=== PATIENT | male | born 1965 | race Caucasian/White ===

== ENCOUNTER 2020-10-23 01:11 | Day surgery (SDC) | payer OTHER, SELFPAY ==
--- NOTE | 2020-10-20 08:32 | P.HP_ITS ---
History of Present Illness History of Present Illness Consent: Risks, benefits, and alternatives have been discussed and questions answered. Patient agrees to proceed with procedure. Chief complaint: Benign Prostatic Hyperplasia Narrative: Zafar Hannah is a 55 year old male With long-standing prostatism dating back approximately 11 years. He recently presented with a desire to get out medications for BPH. At the discussion of therapeutic options and evaluation i ncluding PSA and cystoscopy he has elected for a Urolift. He is aware the risk of this procedure, including but not limited to, adverse cardiopulmonary events, postoperative hematuria, persistent voiding symptoms. We also discuss alternative therapeutic options including TURP, medical management laser prostatectomy. Review of Systems Cardiovascular: Cardiovascular: Denies chest pain, Denies lightheadedness, Denies palpitations and Denies dyspnea Respiratory: Respiratory: Denies dyspnea Gastrointestinal: Gastrointestinal: Denies diarrhea, Denies nausea and Denies vomiting Genitourinary: Genitourinary: Denies hematuria and Denies dysuria Endocrine: Endocrine: Denies palpitations [facility] Family History Family History Mother Patient's mother is in good health Father Patient's father is in good health Sibling Patient's sister is in good health Patient's brother is in good health Social History Social History Smoking status: Never smoker Second hand tobacco smoke exposure: Yes Alcohol intake: current Drinks per week: 4 Substance use: never Meds Home Medications and Allergies Home Medications Medication Instructions Recorded Confirmed Type naproxen 500 mg tablet 500 mg PO BID 11/07/19 06/18/20 History tadalafil 2.5 mg tablet 2.5 mg PO DAILY 01/14/20 06/18/20 History Allergies Allergy/AdvReac Type Severity Reaction Status Date / Time No Known Allergies Allergy Verified 06/17/20 13:31 Assessment and Plan Assessment and plan (1) BPH loc w urin obs/LUTS: Code(s): N40.1 - Benign prostatic hyperplasia with lower urinary tract symptoms Status: Acute Assessment and Plan: * UroLift
[2020-10-21 09:22] VITALS: BMI 23.1
--- NOTE | 2020-10-23 06:00 | WPDHPUPDATE1 ---
History and Physical Update Update Date/Time: 10/23/20 06:00 History and Physical has been reviewed, including an updated exam of the patient. There are NO changes in the patient's condition. Risks, benefits, and alternatives have been discussed and questions answered. Patient agrees to proceed with procedure.
[2020-10-23 06:29] VITALS: BP 115/78; PULSE 59; RESP 16; TEMP 36.3; O2SAT 97; BMI 24.3
--- NOTE | 2020-10-23 06:41 | P.PNAN_ITS ---
Anes - Initial Pre Proc Eval Procedure: Operation Date: 10/23/20 07:30 Proposed Procedures p Urolift - Noe Del Real MD Date/Time: 10/23/20 06:41 Surgeon: Noe Del Real MD Pre Op Diagnosis: Benign Prostatic Hyperplasia Patient Data Age: 55 Gender: M Height: 1.79 m Weight: 78.2 kg Last Vital Signs Temp 36.3 C L 10/23/20 06:29 Pulse 59 L 10/23/20 06:29 Resp 16 10/23/20 06:29 BP 115/78 10/23/20 06:29 Pulse Ox 97 10/23/20 06:29 Allergies Allergy/AdvReac Type Severity Reaction Status Date / Time No Known Allergies Allergy Verified 10/23/20 06:20 Home Medications Medication Instructions Recorded Confirmed Type tadalafil 2.5 mg tablet 2.5 mg PO DAILY 01/14/20 10/21/20 History ibuprofen [Advil] 400 mg PO DAILY PRN 10/21/20 10/23/20 History Patient hx anesthesia problems: none Family hx anesthesia problems: none PMFSH Surgical History Surgical History (Updated 10/23/20 @ 06:44 by Marlon Adams MD) H/O sinus surgery S/P ACL reconstruction Family History Family History Mother Patient's mother is in good health Father Patient's father is in good health Sibling Patient's sister is in good health Patient's brother is in good health Social History Social History Smoking status: Never smoker Second hand tobacco smoke exposure: Yes Alcohol intake: current Drinks per week: 4 Substance use: never Spiritual care concerns: No Anes - Eval Final PreProcedure Day of Procedure 10/23/20 06:41 Patient weight: normal Heart: regular rate and rhythm Lungs: clear to auscultation Airway: Mallampati scale class 1 Neurological: alert and oriented Last oral intake: >/= 8 hours ASA classification: I Emergent: no Anesthetic plan: proceed Anesthesia type and monitoring: general GIVS and standard monitoring Informed Consent: The patient's anesthetic plan and its attendant risks and be nefits were discussed with the patient/family/POA. Questions were solicited and answers provided to the satisfaction of the patient/family/POA.
[2020-10-23] MEDS: LACTATED RINGERS 1,000 ML 30 ML IV CONT (06:48)
[2020-10-23] MEDS: ceFAZolin 2 GM/D5W 50 ML 2 GM/50 ML BAG IVPB (07:28)
[2020-10-23] MEDS: LIDOCAINE HCL 2% GEL UROJET 10 ML PKG MUCOUS MEM (07:41)
--- NOTE | 2020-10-23 07:43 | W.PM.PROC2 ---
Procedure Note - Detailed Date of Procedure 10/23/20 Pre-op Diagnosis Benign Prostatic Hyperplasia Post-op Diagnosis same Procedure Performed UroLift Surgeon Noe Del Real MD Abrasive Band Winder None Anesthesia MAC Indications Bladder outlet obstruction due to BPH Description of Procedure The patient was prepped and draped in a routine fashion after the uneventful induction of a general LMA anesthetic. A 20F cystoscope was inserted into the bladder. The cystoscopy bridge was replaced with a UroLift delivery device. The first treatment site was the patient's right side approximately 1.5cm distal to the bladder neck. The distal tip of the delivery device was then angled laterally approximately 20 degrees at this position to compress the lateral lobe. The trigger was pulled, thereby deploying a needle containing the implant through the prostate. The needle was then retracted, allowing one end of the implant to be delivered to the capsular surface of the prostate. The implant was then tensioned to assure capsular seating and removal of slack monofilament. The device was then angled back toward midline and slowly advanced proximally (typically 3 to 4 mm) until cystoscopic verification of the monofilament being centered in the delivery bay. The urethral end piece was then affixed to the monofilament thereby tailoring the size of the implant. Excess filament was then severed. The delivery device was then re-advanced into the bladder. The delivery device was then replaced with cystoscope and bridge and the implant location and opening effect was confirmed cystoscopically. The same procedure was then repeated on the left side, and two additional implants were delivered just proximal to the verumontanum, again one on right and one on left side of the prostate, following the same technique. Therefore, a total of 4 implants were delivered. A final cystoscopy was conducted first to inspect the location and state of each implant and second, to confirm the presence of a continuous anterior channel was present through the prostatic urethra with irrigation flow turned off. The bladder was then filled with 150 cc irrigation fluid to assist the patient in void trial after the procedure, and all instruments were removed. At this point the cystoscope was removed and the patient was taken to the PACU in good condition. Implants UroLift x4 Estimated Blood Loss 0 Drains No Packing No Pathology none sent Complications No immediate complications Condition stable
[2020-10-23 07:49] VITALS: BP 120/66; PULSE 60; RESP 14; O2SAT 98
[2020-10-23 08:10] VITALS: BP 119/71; PULSE 87; RESP 14; O2SAT 97
[2020-10-23 08:33] VITALS: BP 133/76; PULSE 88; RESP 14
[2020-10-23 09:00] VITALS: BP 123/66; PULSE 55; RESP 16
== END 2020-10-23 09:06 | disposition home or self-care (01) ==
PROVIDERS: PCP Internal Medicine; Visit Provider Urology
PROC: 0T7D8DZ Dilation of Urethra with Intraluminal Device, Via Natural or Artificial Opening Endoscopic (ICD-10-PCS; CPT 52441; principal; 2020-10-23 07:30)
DX: N40.1 Benign prostatic hyperplasia with lower urinary tract symptoms (principal); N13.8 Other obstructive and reflux uropathy
CPT/HCPCS: 52441; 52442 ×3; A9270; J0690; J2250; J2704; J3010; J7120; L8699

== ENCOUNTER → 2020-11-20 14:25 | Outpatient (CLI) | payer OTHER, SELFPAY ==
--- NOTE | ~2020-11-20 | XR_ITS ---
XR knee LT 3V DATE: 11/20/2020 14:49 INDICATION: Left knee pain TECHNIQUE: [place], standing AP and lateral views COMPARISON: None FINDINGS: Threaded radiopaque devices are noted in the distal femur and proximal tibia for cruciate l igament repair. There is mild chondrocalcinosis. There is tricompartment mild to moderate osteoarthritis, most pronou nced at the medial compartment. No recent fracture or dislocation or joint effusion. No periosteal reaction or bone destruction. IMPRESSION: Successful surgical repair Chondrocalcinosis Osteoarthritis of moderate degree, greatest at the medial compartment Reviewed, dictated and finalized at location A.
--- NOTE | ~2020-11-20 | XR_ITS ---
XR knee RT 3V DATE: 11/20/2020 14:49 INDICATION: Right knee pain TECHNIQUE: [place], AP and lateral views COMPARISON: None FINDINGS: No fracture or dislocation or joint effusion, radiopaque intra-articular loose body or jose c drocalcinosis. No periosteal reaction or bone destruction. Minimal loss of height of the medial compartment joint space. IMPRESSION: Minimal loss of height of medial compartment joint space Reviewed, dictated and finalized at location A.
== END ==
PROVIDERS: PCP Internal Medicine; Visit Provider Internal Medicine
DX: M25.561 Pain in right knee (principal); M17.12 Unilateral primary osteoarthritis, left knee
CPT/HCPCS: 73562

== ENCOUNTER → 2020-12-10 16:55 | Outpatient (CLI) | payer OTHER, SELFPAY ==
--- NOTE | ~2020-12-10 | MR_ITS ---
EXAMINATION: MR lumbar spine wo con DATE: 12/10/2020 17:43 INDICATION: Low back pain. TECHNIQUE: Magnetic resonance imaging (MRI) of the lumbar spine was performed without intravenous con trast. Sequences included sagittal T2-weighted FSE, sagittal T2-weighted FS FSE, sagittal T1-weighted FSE, and axial T2-weighted FSE. COMPARISON: None FINDINGS: Bone alignment is normal. Vertebral body heights and intervertebral disc heights are normal . The distal spinal cord signal intensity is normal. The conus medullaris is at L1. The following dis c levels are specifically discussed: L1-L2: The disc does not extend beyond the endplate margin. There is mild bilateral facet joint osteo arthritis. There is no neural foraminal stenosis. There is no central canal stenosis. L2-L3: The disc does not extend beyond the endplate margin. There is mild bilateral facet joint osteo arthritis. There is no neural foraminal stenosis. There is no central canal stenosis. L3-L4: The disc is mildly bulging. There is mild bilateral facet joint osteoarthritis. There is mild left neural foraminal stenosis. There is no central canal stenosis. L4-L5: The disc is bulging and has an annular fissure. There is severe bilateral facet joint osteoart hritis. There is mild bilateral neural foraminal stenosis. There is mild central canal stenosis. L5-S1: The disc does not extend beyond the endplate margin. There is severe bilateral facet joint ost eoarthritis. There is mild bilateral neural foraminal stenosis. There is no central canal stenosis. IMPRESSION: 1. Mild lumbar spondylosis. Reviewed, dictated and finalized at location A. IMPRESSION: 1. Mild lumbar spondylosis.
== END ==
PROVIDERS: PCP Internal Medicine; Visit Provider Internal Medicine
DX: M54.9 Dorsalgia, unspecified (principal); M47.816 Spondylosis without myelopathy or radiculopathy, lumbar region
CPT/HCPCS: 72148

== ENCOUNTER 2022-02-15 06:01 | Day surgery (SDC) | payer OTHER, SELFPAY ==
[2022-02-15 06:24] VITALS: BMI 25.2
[2022-02-15 06:30] VITALS: BMI 25.2
--- NOTE | 2022-02-15 07:13 | P.PNAN_ITS ---
Anes - Initial Pre Proc Eval Procedure: Operation Date: 02/15/22 07:30 Proposed Procedures p Esophagogastroduodenoscopy - Khari Mlies MD Date/Time: 02/15/22 07:13 Surgeon: Khari Miles MD Pre Op Diagnosis: Gerd Patient Data Age: 56 Gender: M Height: 1.78 m Weight: 79.6 kg Allergies Allergy/AdvReac Type Severity Reaction Status Date / Time No Known Allergies Allergy Verified 02/15/22 06:30 Home Medications Medication Instructions Recorded Confirmed Type meloxicam 15 mg tablet 15 mg PO DAILY #90 tabs 01/25/22 02/15/22 Rx omeprazole 40 mg capsule,delayed 40 mg PO DAILY #90 caps 02/03/22 02/15/22 Rx release alprazolam 0.5 mg tablet 0.5 mg PO PRN PRN anxiety 02/15/22 02/15/22 History tadalafil 2.5 mg tablet (Cialis) 2.5 mg PO DAILY PRN Sexual Activity 02/15/22 02/15/22 History Patient hx anesthesia problems: none Family hx anesthesia problems: none Results Review: All pre-operative results and documents have been reviewed as part of the pre-operative evaluation. [facility] Surgical History Surgical History H/O sinus surgery S/P ACL reconstruction Family History Family History Mother Patient's mother is in good health Father Patient's father is in good health Sibling Patient's sister is in good health Patient's brother is in good health Social History Social History Smoking status: Never smoker Second hand tobacco smoke exposure: Yes Alcohol intake: current Drinks per week: 4 Substance use: never Substance use type: does not use Has the Lack of Transportation Kept You From Medical Appointments or From Getting Medications?: No Within the Past 12 Months, Were You Worried Whether Your Food Would Run Out Before You Got Money to Buy More?: Never True What is Your Housing Situation Today?: Decline to Answer Are You Worried That in the Next 2 Months, You May Not Have Your Own Housing to Live In?: Decline to Answer Do You Have Trouble Paying Your Heating Or Electricity Bill?: Decline to Answer Do You Have Trouble Paying For Medicines?: Decline to Answer Are You Currently Unemployed and Looking for Work?: Decline to Answer Highest Level of Education Completed: Decline to Answer Do You Have Trouble With Childcare or the Care of a Family Member?: Decline to Answer Living arrangements: with family Spiritual care concerns: No Anes - Eval Final PreProcedure Day of Procedure 02/15/22 07:13 Patient weight: normal Heart: regular rate and rhythm Lungs: clear to auscultation Airway: Mallampati scale class 1 Neurological: alert and oriented Last oral intake: >/= 8 hours ASA classification: II Emergent: no Anesthetic plan: proceed Anesthesia type and monitoring: general GIVS and standard monitoring Results Review: All pre-operative results and documents have been reviewed as part of the pre- operative evaluation. Informed Consent: The patient's anesthetic plan and its attendant risks and benefits were discussed with the patient/family/POA. Questions were solicited and answers provided to the satisfaction of the patient/family/POA.
[2022-02-15 07:17] VITALS: BP 143/92; PULSE 52; RESP 14; TEMP 36.8; O2SAT 99
[2022-02-15] MEDS: LACTATED RINGERS 1,000 ML 150 ML IV CONT (07:19)
--- NOTE | 2022-02-15 07:22 | PM.HPGS ---
History of Present Illness History of Present Illness Consent: Risks, benefits, and alternatives have been discussed and questions answered. Patient agrees to proceed with procedure. Chief complaint: Gerd Narrative: Zafar Hannah is a 56 year old male Referred from [facility]. Patient has a long history of heartburn acid regurgitation. Several years ago he tried Prilosec for brief interval as seem to help. Over recent years he has not taken this medication. He began to have substernal discomfort and burning often after drinking coffee or alcohol. Rarely at night. He was restarted on Prilosec for a brief interval this helped to a great deal. Patient has concerns over taking this medication long-term. For this reason he requested EGD. Patient denies any significant dysphagia. He has had no weight loss. Family history reveals 1 sibling with heartburn. Review of Systems Review of Systems: Review of systems noncontributory. [facility] Surgical History Surgical History H/O sinus surgery S/P ACL reconstruction Family History Family History Mother Patient's mother is in good health Father Patient's father is in good health Sibling Patient's sister is in good health Patient's brother is in good health Social History Social History Smoking status: Never smoker Second hand tobacco smoke exposure: Yes Alcohol intake: current Drinks per week: 4 Substance use: never Substance use type: does not use Has the Lack of Transportation Kept You From Medical Appointments or From Getting Medications?: No Within the Past 12 Months, Were You Worried Whether Your Food Would Run Out Before You Got Money to Buy More?: Never True What is Your Housing Situation Today?: Decline to Answer Are You Worried That in the Next 2 Months, You May Not Have Your Own Housing to Live In?: Decline to Answer Do You Have Trouble Paying Your Heating Or Electricity Bill?: Decline to Answer Do You Have Trouble Paying For Medicines?: Decline to Answer Are You Currently Unemployed and Looking for Work?: Decline to Answer Highest Level of Education Completed: Decline to Answer Do You Have Trouble With Childcare or the Care of a Family Member?: Decline to Answer Living arrangements: with family Spiritual care concerns: No Meds Home Medications and Allergies Home Medications Medication Instructions Recorded Confirmed Type meloxicam 15 mg tablet 15 mg PO DAILY #90 tabs 01/25/22 02/15/22 Rx omeprazole 40 mg capsule,delayed 40 mg PO DAILY #90 caps 02/03/22 02/15/22 Rx release alprazolam 0.5 mg tablet 0.5 mg PO PRN PRN anxiety 02/15/22 02/15/22 History tadalafil 2.5 mg tablet (Cialis) 2.5 mg PO DAILY PRN Sexual Activity 02/15/22 02/15/22 History Allergies Allergy/AdvReac Type Severity Reaction Status Date / Time No Known Allergies Allergy Verified 02/15/22 06:30 Vital Signs Vital Signs - 24 hr 02/15/22 07:17 Temperature 98.2 F Pulse Rate 52 L Respiratory Rate 14 Blood Pressure 143/92 H Pulse Oximetry 99 Oxygen Delivery Room Air Exam Narrative: Physical exam reveals patient to be alert. Vital signs stable. HEENT exam is unremarkable. Patient is anicteric. Lungs are clear to auscultation and percussion. Heart is without murmur or extra sounds. Abdomen bowel sounds are present soft nontender with no organomegaly. Rectal exam is deferred at this time. Assessment and Plan Assessment and plan (1) GERD (gastroesophageal reflux disease): Qualifiers: Esophagitis presence: without esophagitis Qualified Code(s): K21.9 - Gastro-esophageal reflux disease without esophagitis Code(s): K21.9 - Gastro-esophageal reflux disease without esophagitis Status: Acute Assessment and Plan: Patient with ongoing acid reflu
[2022-02-15 07:42] VITALS: BP 122/78; PULSE 68; RESP 16; O2SAT 100
[2022-02-15 07:52] VITALS: BP 129/85; PULSE 57; RESP 16; O2SAT 99
--- NOTE | 2022-02-15 07:54 | P.PNAN_ITS ---
Anes - Eval Final PreProcedure Day of Procedure 02/15/22 07:54 Patient weight: normal Heart: regular rate and rhythm Lungs: clear to auscultation Airway: Mallampati scale class 1 Neurological: alert and oriented Last oral intake: >/= 8 hours ASA classification: II Emergent: no Anesthetic plan: proceed Anesthesia type and monitoring: general GIVS and standard monitoring Results Review: All pre-operative results and documents have been reviewed as part of the pre- operative evaluation. Informed Consent: The patient's anesthetic plan and its attendant risks and benefits were discussed with the patient/family/POA. Questions were solicited and answers provided to the satisfaction of the patient/family/POA.
--- NOTE | 2022-02-15 07:55 | WPDANESPN ---
Anes - Prog Note Post-Op Date/Time: 02/15/22 07:55 Cardiovascular status: normal Respiratory status: normal Airway patency: baseline Mental status: baseline Post-Op hydration status: normal Vital Signs: Last Vital Signs Temp 36.8 C 02/15/22 07:17 Pulse 68 02/15/22 07:42 Resp 16 02/15/22 07:42 BP 122/78 02/15/22 07:42 Pulse Ox 100 02/15/22 07:42 O2 Del Method Room Air 02/15/22 07:42 Pain Score (VAS): 0/10 I/O: Intake & Output 02/14/22 02/14/22 02/15/22 15:59 23:59 07:59 Intake Total 200 Balance 200 Patient Feedback: Patient satisfied with anesthetic care.
[2022-02-15 08:02] VITALS: BP 133/85; PULSE 53; RESP 18; O2SAT 100
== END 2022-02-15 08:25 | disposition home or self-care (01) ==
PROVIDERS: PCP Physician Assistant; Visit Provider Internal Medicine Gastroenterology
PROC: 0DJ08ZZ Inspection of Upper Intestinal Tract, Via Natural or Artificial Opening Endoscopic (ICD-10-PCS; CPT 43235; principal; 2022-02-15 07:30)
DX: K21.9 Gastro-esophageal reflux disease without esophagitis (principal)
CPT/HCPCS: 43235

== ENCOUNTER 2024-09-24 14:17 | Outpatient (CLI) | payer OTHER, SELFPAY ==
--- NOTE | ~2024-09-24 | XR_ITS ---
HISTORY: M25.561 - Pain in right knee COMPARISON: 11/20/2020 TECHNIQUE: 4 views of the left knee were performed FINDINGS: No acute or subacute fracture. Post ACL graft repair. The tibial component of the graft lies posterior to the roof of the intercondylar notch line, althoug h not distinctly parallel given the limitations of the current lateral view. Medial and lateral tibiofemoral joint space narrowing sclerosis is identified. Chondrocalcinosis is also noted, laterally more than medially. Ossification at the insertion of the tibial patellar tendon is present. Small suprapatellar joint effusion is identified. The infrapatellar joint space is clear. IMPRESSION: Degenerative disease demonstrating significant progression since the 2020 examination, w ithout acute fracture, as detailed above. Reviewed, dictated and finalized at location A. IMPRESSION: Degenerative disease demonstrating significant progression since 2020 examination, without acute fracture, as detailed above.
--- NOTE | ~2024-09-24 | XR_ITS ---
XR knee RT min 4V Ordering provider: Arsen Olmos DO History: . M25.561 - Pain in right knee . Comparison: November 20, 2020 FINDINGS: BONES: No acute fracture or dislocation. JOINT SPACES: Slight narrowing of the medial compartment. SOFT TISSUES: Normal. IMPRESSION: No acute osseous abnormality right knee. Mild osteoarthritic changes. Reviewed, dictated and finalized at location A.
--- OUTSIDE RECORDS SUMMARY | 2024-09-24 15:23 | XMS_ITS | Clinical Summary ---
Author Organization [address] Address [facility] [place] [address] Care Team Providers Care Scale Mechanic Name Role Phone Greg Aranda MD Primary Care Provider [phone]- [phone] Allergies No known active allergies Medications celecoxib (CeleBREX) 200 mg capsule Take 1 capsule (200 mg total) by mouth 2 (two) times a day 03/10/2021 Active tadalafiL (CIALIS) 5 mg tablet Take 1 tablet (5 mg total) by mouth daily 01/09/2021 Active meloxicam (MOBIC) 15 mg tablet 11/16/2023 Active omeprazole (PriLOSEC) 40 mg capsule 11/16/2023 Active cyclobenzaprine (FLEXERIL) 10 mg tablet Take 1 tablet (10 mg total) by mouth daily as needed for muscle spasms (at bedtime) 30 tablet 1 03/14/2024 Active Active Problems Problem Noted Date Diagnosed Date Primary osteoarthritis of both knees 01/28/2021 Social History Tobacco Use Types Packs/Day Years Used Date Smoking Tobacco: Never Tobacco Cessation:Counseling Given: Not Answered Sex and Gender Information Value Date Recorded Sex Assigned at Not on file Legal Sex Male 3:09 PM CDT Gender Identity Not on file Sexual Orientation Not on file Obstetrics History Last Filed Vital Signs Vital Sign Reading Time Taken Comments Blood Pressure - - Pulse - - Temperature - - Respiratory Rate - - Oxygen Saturation - - Inhaled Oxygen Concentration - - Weight 77.2 kg (170 lb 3.2 oz) 01/27/2024 10:08 AM CDT Height 180.5 cm (5' 11.06) 11/29/2023 9:32 AM C DT Body Mass Index 23.7 11/29/2023 9:32 AM CDT Plan of Treatment Health Maintenance Due Date Last Done Comments Colon Cancer Screening-Colonoscopy 1964 Depression Screening 1964 Hepatitis C Screening 1964 Prostate Cancer Screening-PSA 1964 DTaP/Tdap/Td Vaccine (1 - Tdap) 1975 Hepatitis B Screening 1982 Regular Well Visit/Exam 18-64 1982 Zoster Vaccine (1 of 2) 2014 Covid-19 Vaccine (3 - 2023-2 5 season) 2023 03/24/2021, 10/01/2020 Influenza Vaccine (Season Ended) 2024 Pneumococcal vaccine <65 Aged Out No longer eligible based on patient's age to complete this topic Insurance [facility] [employer] [employer] Care Teams Scale Mechanic Relationship Specialty Start Date End Date Greg Aranda MD [address] [facility] [address] [facility] [address] [place] [address] PCP - General Internal Medicine 12/18/20
--- OUTSIDE RECORDS SUMMARY | 2024-09-24 15:23 | XMS_ITS | Clinical Summary ---
Author Organization [facility] Address [address] [place] [address] Care Team Providers Care Computed Tomography Technician Name Role Phone WilfridGreg bowie Colette PANDYA Primary Care Provider Rigo Singh MD Unavailable Source Comments [facility],non-owned Affiliates and Associated Physician Practices is amultiple site organization consisting of ambulatory clinics and hospital sitesin [place], [place], [place] and [place]. This disclosure is being madepursuant to the Care Everywhere program and may not contain all information available regarding this patient. Last updated 17.[facility] Allergies No known active allergies Medications * Be aware that medications may not be up to date on this document. Alwaysverify current medications with the patient. tadalafil (CIALIS) 5 MG tablet Take 1 tablet by mouth once daily 1 Active celecoxib (CELEBREX) 200 MG capsuleIndications: Primary osteoarthritis of both knees Take 1 (one) capsule by mouth 2 times daily 180 capsule 2 1 Active Active Problems Problem Noted Date Diagnosed Date Primary osteoarthritis of both knees 01/28/2021 Social History Tobacco Use Types Packs/Day Years Used Date Smoking Tobacco: Never Smokeless Tobacco: Never Sex and Gender Information Value Date Recorded Sex Assigned at Not on file Legal Sex Male 9:54 AM CDT Gender Identity Not on file Sexual Orientation Not on file Last Filed Vital Signs Vital Sign Reading Time Taken Comments Blood Pressure 120/70 08/04/2016 10:06 AM CDT Pulse 74 08/04/2016 10:06 AM CDT Temperature 36.9 C (98.4 F) 08/04/2016 10:06 AM CDT Respiratory Rate 16 08/04/2016 10:06 AM CDT Oxygen Saturation 98% 08/04/2016 10:06 AM CDT Inhaled Oxygen Concentration - - Weight 75.3 kg (166 lb) 01/26/2021 4:24 PM CDT Height 177.8 cm (5' 10) 01/26/2021 4:24 PM CDT Body Mass Index 23.82 01/26/2021 4:24 PM CDT Plan of Treatment Health Maintenance Due Date Last Done Comments COLOGUARD (AGES 45-75) - COL ON CA SCREENING 1964 COLON MONITORING 1964 COLONOSCOPY - COLON CA SCREENING 1964 CT COLONOGRAPHY - COLON CA SCREENING 1964 Colorectal Cancer Screening 1964 FIT - COLON CA SCREENING 1964 FLEX SIG - COLON CA SCREENING 1964 LIPID TESTING 1964 HIV SCREENING 1979 HEPATITIS C SCREENING 04/30/1982 DTAP/TDAP/TD VACCINES (1 - Tdap) 1983 PNEUMOCOCCAL VACCINE 50+ (1 of 1 - PCV) 2014 ZOSTER VACCINE (1 of 2) 2014 COVID-19 VACCINE ( - 2023-2 5 season) 2023 DEPRESSION SCREENING 04/11/2024 INFLUENZA VACCINE (Season Ended) 2024 Respiratory Syncytial Virus (RSV) Vaccine Pt: or over 60 yrs (1 - 1-dose 75+ series) 2039 HEPATITIS B VACCINE Aged Out No longe r eligible based on patient's age to complete this topic HIB VACCINE Aged Out No longer eligi ble based on patient's age to complete this topic HPV VACCINE Aged Out No longer eligi ble based on patient's age to complete this topic MENINGOCOCCAL (Group B) VACC INE SHARED DECISION-MAKING Aged Out No longer eligibl e based on patient's age to complete this topic MENINGOCOCCAL GROUPS A/C/Y/W VACCINE Aged Out No longer eligible b ased on patient's age to complete this topic Insurance [facility] Care Teams Computed Tomography Technician Relationship Specialty Start Date End Date Greg Aranda DO [address] [facility] [address] [place] [address] [place], [place] [id number] PCP - General Internal Medicine 01/26/21 [place] [id number] [address] Surgeon Orthopedic Surgery 01/26/21
--- OUTSIDE RECORDS SUMMARY | 2024-09-24 15:23 | XMS_ITS | Clinical Summary ---
Author Organization [facility] Address [facility] [place] [address] Care Team Providers Care Wrapper Sheeter Name Role Phone Unavailable Primary Care Provider Unavailabl e Social History Tobacco Use Types Packs/Day Years Used Date Smoking Tobacco: Never Assessed Sex and Gender Information Value Date Recorded Sex Assigned at Not on file Legal Sex Male 3:40 AM CDT Gender Identity Not on file Sexual Orientation Not on file Plan of Treatment Health Maintenance Due Date Last Done Comments Colorectal Cancer Screening Colonoscopy (10 Years) 1964 Annual Physical 1967 Hepatitis C 1982 DTaP, Tdap and Td Vaccines ( 1 - Tdap) 1983 Pneumococcal Vaccine: 50+ Ye ars (1 of 1 - PCV) 2014 Zoster Vaccines (1 of 2) 2014 COVID-19 Vaccine ( - 2023-2 5 season) 2023 RSV Immunization or 60+ Years (1 - 1-dose 75+ series) 2039 Meningococcal B Vaccine Aged Out No l onger eligible based on patient's age to complete this topic Meningococcal Vaccine Aged Out No sulma alecia eligible based on patient's age to complete this topic RSV Immunizations Under 20 Months Aged Out No longer eligible based on patient's age to complete this topic
--- OUTSIDE RECORDS SUMMARY | 2024-09-24 15:23 | XMS_ITS | Referral Summary ---
Author Organization [address] Address [facility] [place] [address] Care Team Providers Care Siding Stapler Name Role Phone Greg Aranda MD Primary Care Provider [phone]- [phone] Allergies No known active allergies Medications celecoxib [...] 11/29/2023 9:32 AM CDT Plan of Treatment Not on file Insurance [facility] CHOICE [facility]US [facility]PPO Address: [place] [address] [facility]ICE [facility]/PPO Address: [address] [place] [address] Care Teams Siding Stapler Relationship Specialty Start Date End Date Greg Aranda MD [address] [facility] [address] [place] [address] PCP - General Internal Medicine 12/18/20
== END 2024-09-24 14:18 | disposition home or self-care (01) ==
PROVIDERS: PCP Internal Medicine; Visit Provider Internal Medicine
DX: M17.0 Bilateral primary osteoarthritis of knee (principal)
CPT/HCPCS: 73564

== ENCOUNTER 2024-09-27 13:21 | Outpatient (CLI) | payer OTHER, SELFPAY ==
--- NOTE | ~2024-09-27 | XR_ITS ---
MODIFIED ESOPHAGRAM HISTORY: Dysphagia. TECHNIQUE: Modified barium esophagram was performed on 09/27/2024. I administered fluoroscopy and perf ormed the exam with speech pathologist. Patient was seated for lateral fluoroscopic imaging for michael stion of thin liquids, pudding, solids and quantified amounts, followed by thin liquids in uncontroll ed amounts. This was recorded on tape. A single fluoroscopic spot image was also recorded. The DAP fo r this procedure was 1.6 Gycm2. The amount of fluoroscopy time used during this procedure was 2.1 min utes. FINDINGS: Oral stage: Adequate function. Pharyngeal stage: Reduced tongue base retraction and reduced epiglottic inversion. There is some vall ecular and piriform sinus residue. Cricopharyngeal dysfunction. No laryngeal penetration or aspiratio n. Cervical/esophageal stage: Adequate function. IMPRESSION: Pharyngeal dysphagia without evident or aspiration. Please correlate with speech patholo gist findings and specific feeding recommendations. Reviewed, dictated and finalized at location B. IMPRESSION: Pharyngeal dysphagia without evident or aspiration. Please correla te with speech pathologist findings and specific feeding recommendations.
--- OUTSIDE RECORDS SUMMARY | 2024-09-27 13:36 | XMS_ITS | Clinical Summary ---
Author Organization [address] Address [facility] [place] [address] Care Team Providers Care Medical Reviewer Name Role Phone Greg Aranda MD Primary Care Provider [phone]- [phone] Allergies No known active allergies Medications celecoxib [...] patient's age to complete this topic Insurance [facility]PPO Address: [address] [address] [facility] CHOICE PLUS [facility] HMO/PPO Address: [facility] [address] [place] [address] Care Teams Medical Reviewer Relationship Specialty Start Date End Date Greg Aranda MD [address] [facility] [address] [facility] [address] [place] [address] PCP - General Internal Medicine 12/18/20
--- OUTSIDE RECORDS SUMMARY | 2024-09-27 13:36 | XMS_ITS | Clinical Summary ---
Author Organization [facility] Address [address] [address] [place] [address] Care Team Providers Care Advisory Internship Name Role Phone WilfridGreg bowie Colette PANDYA Primary Care Provider Rigo Singh MD Unavailable [phone] Source Comments [facility],non-owned Affiliates and Associated Physician Practices is amultiple site organization consisting of ambulatory clinics and hospital sitesin [place], [place], [place] and [place]. This disclosure is being madepursuant to the Care Everywhere program and may not contain all information available regarding this patient. Last updated 17.[facility] [employer] Allergies No known active allergies Medications * [...] patient's age to complete this topic Insurance [facility] Care Teams Advisory Internship Relationship Specialty Start Date End Date Greg Aranda DO [address] [facility] [address] [place] [address] [place], [place] [id number] PCP - General Internal Medicine 01/26/21 [place] [address] [address] Surgeon Orthopedic Surgery 01/26/21
--- OUTSIDE RECORDS SUMMARY | 2024-09-27 13:36 | XMS_ITS | Clinical Summary ---
Author Organization [facility] Address [facility] [place] [address] Care Team Providers Care Sign Shop Supervisor Name Role Phone Unavailable Primary Care Provider [...]
--- OUTSIDE RECORDS SUMMARY | 2024-09-27 13:36 | XMS_ITS | Referral Summary ---
Author Organization [address] Address [facility] [place] [address] Care Team Providers Care Silo Erector Name Role Phone Greg Aranda MD Primary Care Provider [phone]- [phone] Allergies No known active allergies Medications celecoxib [...] Plan of Treatment Not on file Insurance [facility] CHOICE PLUS [facility] CHOICE PLUS Care Teams Silo Erector Relationship Specialty Start Date End Date Greg Aranda MD [address] [facility] [address] [place] [address] PCP - General Internal Medicine 12/18/20
--- NOTE | 2024-09-27 15:27 | REHSTMBS ---
Assessment and note entered by Destinee Preston, FOUNDRY SUPERINTENDANT Modified Barium Swallow Evaluation ICD-10 Condition Codes (ST) Dysphagia, pharyngeal phase R13.13 Subjective Information The patient is a 59 yr old male referred for an outpatient MBS study secondary to complaints of pharyngeal dysphagia. The patient reports difficulty primarily with solids and a sensation of food sticking frequently. He reports at times needed to cough to clear food that has become lodged. The patient per his reports has a history of reflux and currently takes omeprazole as prescribed by his physician. Feeding Type Recommended Oral Food Consistency Regular, Level 7 Liquid Consistency Thin (0) Treatment Recommendations Effortful Swallow,Laryngeal Elevation Exercise, Elisabet Maneuver,Shaker Exercise,Tongue Base Exercise ST Clinical Summary The patient is a 59 yr old male referred for an outpatient MBS study secondary to complaints of pharyngeal dysphagia. The patient reports difficulty primarily with solids and a sensation of food sticking frequently. He reports at times needed to cough to clear food that has become lodged. The patient per his reports has a history of reflux and currently takes omeprazole as prescribed by his physician. The patient was positioned in the lateral view and presented the following consistencies: 5cc/tsp amounts thin liquid barium, cup amounts thin liquid barium, pudding mixed with barium paste, and cracker coated with barium paste. Oral Stage was within normal limits for all consistencies. Pharyngeal Stage: Upon presentation of both 5cc and cup amounts thin liquid swallow initiation was viewed to be timely without risk of aspiration, penetration, or remaining pharyngeal residual. When presented pudding mixed with barium paste and cracker coated with barium paste. Pharyngeal symptoms included moderate residual remaining in the vallecula secondary to reduced tongue base retraction, reduced laryngeal elevation, and intermittent incomplete epiglottic retroflexion. In addition mild residual remained in the pyriform sinus secondary to cricopharyngeal dysfunction. Modifications attempted included effortful swallow and liquid wash. The liquid wash provided the greatest success in clearing the residual material for both pudding and cracker consistencies. Compensatory Strategies Recommended: 1. Small bites and drinks 2. Upright with meals 3. Effortful swallow 4. Repeat Swallow or Alternate bites and Drinks. In Addition Outpatient Speech Therapy recommended to address exercises to include Effortful Swallow, Elisabet, Shaker Exercise, Laryngeal Elevation, and Tongue Base Exercise.
== END 2024-09-27 13:22 | disposition home or self-care (01) ==
PROVIDERS: PCP Internal Medicine; Visit Provider Internal Medicine
DX: R13.10 Dysphagia, unspecified (principal)
CPT/HCPCS: 74230; 92611